=== PATIENT | male | born 2000 | race Caucasian/White ===

== ENCOUNTER 2021-03-14 09:48 | Emergency (ER) | payer BC ==
[~2021-03-14] VITALS: Ht 185.4 cm; Wt 120.5 kg
[2021-03-14 09:55] VITALS: BP 115/69
== END 2021-03-14 12:32 | disposition home or self-care (01) ==
LOC: ER 09:49
DX: U07.1 COVID-19 (principal); R51.9 Headache, unspecified; R42 Dizziness and giddiness; R05 Cough; R19.7 Diarrhea, unspecified; R53.83 Other fatigue; Z88.0 Allergy status to penicillin
CPT/HCPCS: 87635; 99283; C9803